=== PATIENT | female | born 1985 ===

== ENCOUNTER 2019-09-13 20:37 | Emergency (ER) | payer OTHER ==
[~2019-09-13] VITALS: Ht 172.7 cm; Wt 100.0 kg
[2019-09-13 20:45] VITALS: BP 120/78
[2019-09-13] MEDS ORDERED: PERM60CR4 TP (20:56)
[2019-09-13] MEDS ORDERED: HYDR-4031 PO (20:56)
[2019-09-13] MEDS ORDERED: CLIN300C3 PO (20:56)
[2019-09-13] MEDS ORDERED: DiphenhydrAMINE HCL 25 MG CAPSULE PO ONE (21:45)
== END 2019-09-13 22:04 | disposition home or self-care (01) ==
LOC: EMS 20:40
DX: B86 Scabies (principal)